=== PATIENT | female | born 1975 | race Caucasian/White ===

== ENCOUNTER 2016-12-06 06:57 | Day surgery (SDC) | payer OTHER ==
[2016-12-06] VITALS (8 sets, daily range): BP systolic 115–138; BP diastolic 68–91; PULSE 74–107; RESP 10–18; O2SAT 95–100
[~2016-12-06] VITALS: Ht 175.3 cm; Wt 87.4 kg
[~2016-12-06 06:57] MED LIST: Ampicillin-Sulbactam Inj 3,000 MG in 0.9% Sodium Chloride 100 ML IV SCH
[2016-12-06] MEDS ORDERED: HYDR12.55 PO (07:32)
[2016-12-06] MEDS ORDERED: Lactated Ringer's 1,000 ML IV ONE ×2 (08:59→12:00)
[2016-12-06] MEDS ORDERED: Iopamidol-300 50 mL Inj IV ONE (09:13)
[2016-12-06] MEDS ORDERED: Bupivacaine-MPF 0.5% 30 mL Inj INFILTRATE ONE (09:13)
[2016-12-06] MEDS ORDERED: DICY20TA10 PO (09:14)
[2016-12-06] MEDS ORDERED: Lactated Ringer's 1,000 ML IV SCH (09:16)
[2016-12-06] MEDS ORDERED: Lactated Ringer's 500 ML IV PRN (09:16)
--- NOTE | 2016-12-06 09:16 | PCM.HPANE ---
Patient Data Date of Service: Dec 06, 2016 (0855) Surgeon Admitting Provider:Brendan Evans MD Attending Provider:Brendan Evans MD Primary Care Physician:Xi Laguna Other Provider: Reason for Visit Chronic Cholecystitis Ht/WT & BMI Height (Feet): 5 Height (Inches): 9.00 Weight (Kilograms): 87.400 Body Mass Index 28.54 Allergies Uncoded Allergies: No Known Allergies (Allergy, Unknown, 09/07/04) Past Anesthesia History Anesthesia History: Denies:: Anesthesia Reactions Diabetes History Hx Diabetes?: No MRSA MRSA: No Medications Reported Medications Dicyclomine 20 Mg [id number] Mg PO TID PRN For GI Cramps Ref 0 12/06/16 Hydrochlorothiazide 12.5 Mg [id number] Mg PO QAM 30 Days Ref 0 12/06/16 History History of ENT Problems?: No HEENT History: Denies:: Cataracts Dysphagia Sinus Problem Denture Type: None Teeth Condition: Within Normal Limits Hx of Heart Problems?: Yes Cardiovascular History: Positive for:: Hypertension Denies:: Cardiac Surgery Chest Pain Congestive Heart Failure Edema Heart Murmur Irregular Heartbeat Pacemaker Thrombophlebitis Hx of Respiratory Problem?: No Respiratory History: Denies:: Asthma COPD Chest Surgery Dyspnea Emphysema Hemoptysis Pneumonia Tuberculosis Hx Neurologic Problems?: Yes Neurological History: Positive for:: Headaches Denies:: Alzheimer's Disease CVA Dementia Dizziness Parkinson's Disease Seizures Hx of GI Problems?: No Hx of Problems?: No Genitourinary History: Denies:: HX of Hemodialysis Kidney Stones Urinary Tract Infection HX of Peritoneal Dialysis: No Female Hx: Denies:: Currently Endometriosis Pelvic Inflammatory Problems with Breasts? Hx Musculoskeletal Problems?: No Musculoskeletal History: Denies:: Back Injury Joint Replacement Musculoskeletal Trauma Hx of Psycho/Social Problems?: No Psycho Social History: Denies:: Anxiety Bipolar Disorder Hx Depression Suicide Attempt Hx Surgeries?: No Other History: Positive for:: Hospitalization (pneumonia as a child) Denies:: Cancer Thyroid Disease History Blood Transfusions: Positive for:: Accept Blood Products? Denies:: Blood Transfuse Reaction Blood Transfusions Hx Diabetes: No Hx Alcohol Use: Yes (rarely)Hx Substance Use: NoHave You Smoked inLast 12 mo: No Stop/Bang Treated for Sleep Apnea?: No Do You Have a CPAP Machine?: No S-Snoring: Do You Snore Loudly: No T-Tired: feel tired, fatigued: No O-Obsered: Observed not breath: No P-Blood Pressure: treated: Yes B- Body Mass Index > 35 kg/m2: No A- Age over 50: No N- Neck Large Circumference: No G- Gender Male: No ANNMARIE Total Score: 1 ANNMARIE Risk Assessment: High Risk, =/>3 Yes Risk Assessment Category Category 1A: Patient has history of documented sleep apnea, and HAS NOT received any narcotic, sedative or anesthesia administration during this stay. Category 1B: Patient has history of documented sleep apnea, and HAS received any narcotic , sedative or anesthesia administration during this stay Category 2: Patient has SUSPECTED Obstructive Sleep Apnea, and HAS received any narcotic , sedative or anesthesia administration during this stay. Category 3: Patient has SUSPECTED Obstructive Sleep Apnea and HAS NOT received narcotic, sedative or anesthesia administration during this stay. Category 4: Outpatient in Procedural Areas with known sleep apnea or who screen positive for High Risk via the STOP/BANG questionnaire. Exam Exam Vital Signs Vital Signs Date Time Temp Pulse Resp B/P Pulse Ox O2 Delivery O2 Flow Rate FiO2 12/06/16 07:18 36.7 78 18 130/75 100 Room Air General Appearance: Alert, Oriented X3 HEENT/AIRWAY: MP 1 Lungs: Clear to Auscultation Heart: Exam Unremarkable Plan Impression Patient chart reviewed, patient interviewed and anesthestic plan with risks, benefits, and alternatives discussed, and informed consent obtained. NPO per Anesth. Guidelines: Yes ASA Physical Status: ASA2 Mod Systemic Disease Anesthetic Plan: GA Bene/Risks/Altern/Consents: Yes HP Complete Prior to Induction: Yes Clem Bennett MD Dec 06, 2016 09:16
[2016-12-06] MEDS ORDERED: Ondansetron 2 mg/mL 2 mL Inj IVPUSH PRN (09:20)
[2016-12-06] MEDS ORDERED: Phenylephrine 10,000 mCg/mL Inj IVPUSH PRN (09:20)
[2016-12-06] MEDS ORDERED: Dexamethasone 4 mg/mL Inj IVPUSH PRN (09:20)
[2016-12-06] MEDS ORDERED: EPHEDrine Sulfate 50 mg/mL Inj IVPUSH PRN (09:20)
[2016-12-06] MEDS ORDERED: MetoCLOpramide 5 mg/mL 2 mL Inj IVPUSH PRN (09:20)
--- NOTE | 2016-12-06 10:31 | DRSVH ---
PROCEDURE: X-RAY OPERATIVE CHOLANGIOGRAM ([id number]) INDICATIONS: CHOLECYSTITIS COMPARISON: None. FINDINGS: Biliary ducts: The surgeon injected contrast into the biliary ducts after cannulation of the cystic duct stump. Visualized intra- and extrahepatic bile ducts are normal in caliber, without strictures. No intraluminal filling defects to suggest retained ductal stones or sludge. No evidence for iatro genic ductal injury. Duodenum: Contrast flows promptly through the sphincter of Oddi into the duodenum, which appears nor mal in caliber. IMPRESSION: Intraoperative cholangiogram without visualized filling defect or ductal dilation. Dictated by: Estela Teran M.D. on 12/06/2016 at 10:30 Approved by: Estela Teran M.D. on 12/06/2016 at 10:30
--- NOTE | 2016-12-06 11:04 | PCM.ANEP1 ---
Post Anesthesia PACU Phase 1 Assessment Vital Signs 36.1, 138/68, 86, 12, 100% Vital Signs Date Time Temp Pulse Resp B/P Pulse Ox O2 Delivery O2 Flow Rate FiO2 12/06/16 07:18 36.7 78 18 130/75 100 Room Air Anesthetic Administered: GA Level of Alertness: Sleepy, easy to arouse BROWN's with Equal Strength: Yes Pain: Yes Nausea or Vomiting: No CV Function & Hydration Stable: Yes Airway Device: none Oxygen Delivery: Simple Mask Lungs: Clear to Auscultation Summary uneventful GETA PACU Phase 2 Assessment Complications: No Follow up Care: No Patient Instructions Provided: N/A Clem Bennett MD Dec 06, 2016 11:04
--- NOTE | 2016-12-06 11:05 | PCM.DISURG ---
Surgical Discharge Instruction Date of Service Dec 06, 2016 Dates of Hospitalization Date of Hospital Admission Dec 06, 2016 at 07:49 Providers Admitting Physician: Brendan Evans MD Primary Care Physician: Xi Laguna Attending Physician: Brendan Evans MD Discharge Diagnosis Discharge Diagnosis Chronic cholecystitis Post Operative diagnosis Chronic cholecystitis Diet Discharge Diet: No restrictions Activity Discharge Activity-General: No lifting >15 pounds for 2 weeks Dressing and Incisional Care Dressing Care: Allow Steri Stripes to fall off, Remove outer dressing after 24 hrs ((bandaids)) Hygiene: May shower after (24 hours.), DO NOT soak incision under water, NO bathtub, hot tub or whirlpool (for 2 weeks) Follow Up Plan Mid-level Provider (F9): Saturnino Nelson PA-C Follow-up appointment: Weeks (2-3) Toy Mccoy MD Dec 06, 2016 11:05
[2016-12-06] MEDS ORDERED: ACET-171 PO (11:07)
[2016-12-06] MEDS ORDERED: POLY17PO6 PO (11:07)
[2016-12-06] MEDS ORDERED: IBUP-1827 PO (11:07)
[2016-12-06] MEDS ORDERED: OXYC-530 PO (11:07)
--- NOTE | 2016-12-06 11:09 | PCM.SURGPO ---
Immediate Operative Note Date of Surgery: Dec 06, 2016 Pre Operative Diagnosis Chronic cholecystitis Post Operative Diagnosis Chronic cholecystitis Procedure Laparoscopic cholecystectomy with intraoperative cholangiogram Surgeon and Kitchenwhere Maker Surgeon: Brendan Evans MD Assistants: Toy Mccoy MD Findings 1. Adhesions between the right liver and anterior abdominal wall 2. No acute inflammation of the gallbladder 3. Plane between gallbladder and cystic plate with some evidence of chronic inflammation 4. Cholangiogram without evidence of biliary dilatation or obstruction, no stones identified. Complications There were no periprocedural complications identified. Surgical Specimen Removed: Yes Specimen sent to Pathology: Yes Anesthetic Administered: GA Grafts, Implants: None Output, Estimated Blood Loss: 5 Blood Admin during surgery: No Toy Mccoy MD Dec 06, 2016 11:09
[2016-12-06] MEDS: fentaNYL-PF 50 mCg/mL 2 mL Inj IVPUSH PRN ×4 (11:20→11:45)
[2016-12-06] MEDS: HYDROmorphone 1 mg/mL Inj IVPUSH PRN ×2 (11:33→11:45)
--- NOTE | 2016-12-06 13:38 | NUR ---
Admit to [facility] Pt. arrived to unit at 0700 this a.m. accompanied by spouse. Pt. checked into room, vitals taken and oriented to room/call light/falls policy. Admit RN present to do admit and med rec. Pt. denies chest pain, SOB, N/V. Bm this morning. c/o mild 1/10 abdominal pain. IV access placed in L AC. Prepped for transfer to OR at 0845. Consent signed. Transferred to OR around 0910.
[2016-12-06] MEDS ORDERED: Phenylephrine/NS 100 mCg/mL 10 mL Syringe IVPUSH ONE (14:34)
[2016-12-06] MEDS ORDERED: Propofol 10,000 mCg/mL 20 mL Inj ONE (14:34)
[2016-12-06] MEDS ORDERED: Ondansetron 2 mg/mL 2 mL Inj ONE (14:34)
[2016-12-06] MEDS ORDERED: Rocuronium 10 mg/mL 5 mL Inj ONE (14:34)
[2016-12-06] MEDS ORDERED: fentaNYL-PF 50 mCg/mL 2 mL Inj ONE (14:34)
[2016-12-06] MEDS ORDERED: Dexamethasone 4 mg/mL Inj ONE (14:34)
--- NOTE | 2016-12-06 14:44 | NUR ---
Discharge Pt. discharged to home at 1445 via w/c. in stable condition. Able to void, ambulate, eat and drink. Denies nausea. Pain rated at 4/10 which is tolerable for her. Umbilical site had minimal amount of sanguinous drainage. Cleaned and reinforced with a piece of tegaderm. instructions, scripts and belongings sent with pt. Pt. educated on s/s infection, discharge instructions and medications. No questions or concerns at this time.
--- NOTE | 2016-12-06 14:57 | OP ---
[address] [address] OPERATIVE REPORT PATIENT: TONI CABALLERO : 1975 MR#: [id number] ADMIT: 12/06/2016 JOB ID: [id number] DATE OF SURGERY: PREOPERATIVE DIAGNOSIS(ES): Cholecystitis. POSTOPERATIVE DIAGNOSIS(ES): Chronic cholecystitis. PROCEDURES PERFORMED: Laparoscopic cholecystectomy with intraoperative cholangiogram. SURGEON: Brendan Evans MD. SUPERVISOR OF INSTRUCTION: Toy Cuadra MD. COMPLICATIONS: None. CONDITION OF THE PATIENT: Stable. INDICATIONS: The patient is a 41-year-old lady I met on December 05, 2016, with a month-long history of right upper quadrant abdominal pain exacerbated by food. She was initially diagnosed with costochondritis and was treated with steroids and muscle relaxants, and then had a blood test showing elevated LFTs and then had an ultrasound and a HIDA scan with HIDA scan showing slow filling of the gallbladder and ultrasound showing gallstones. When I saw her in clinic yesterday, she was very tender and repeat blood work showed bilirubin high at 1.6, and after discussing the risks, benefits, and alternatives, she was brought to the operating room today for laparoscopic cholecystectomy with cholangiogram. PROCEDURE DETAILS: She was placed in a supine position, underwent smooth induction of general anesthesia. Abdomen was prepped and draped in the usual sterile fashion. Surgical time-out was undertaken using safety checklist, and all were in agreement. I began by making a supraumbilical curvilinear incision, entered the abdomen using open Mila technique. Then placed three 5 mm ports, one in the epigastrium and two in the right upper quadrant. Placed the patient in reverse Trendelenburg position. Retracted the gallbladder cephalad and to the right and dissected the triangle of Calot anteriorly and posteriorly and divided the cystic artery between clips and then clipped the cystic duct on the specimen side and obtained a cholangiogram which showed normal anatomy with no filling defects. We then clipped the cystic duct doubly on the patient's side and then divided the cystic duct. Then dissected the gallbladder safely off the liver bed with good hemostasis, placed it in an EndoCatch bag and suctioned out all the fluid from the right upper quadrant. Then, I extracted the gallbladder through the umbilical port site, and after evacuating pneumoperitoneum, closed the umbilical port fascia with [id number] 0-Vicryl suture. The skin was reapproximated with 4-0 Monocryl. Steri-Strips and sterile dressing were applied. Patient was recovered from anesthesia and was taken to the recovery room in stable condition.
--- NOTE | 2016-12-06 15:17 | PCM.DC.SUR ---
Discharge Summary Date of Service: Dec 06, 2016 Date of Hospital Admission: Dec 06, 2016 at 07:49 Date of Operation(s): 12/06/2016 Date of Discharge: 12/06/2016 Diagnosis at Time of Discharge Chronic cholecystitis Problems: Operation Laparoscopic cholecystectomy with intraoperative cholangiogram Brief History and Physical: The patient is a 41-year-old female with 1 month history of right upper quadrant abdominal pain exacerbated by food. She was initially diagnosed with costochondritis and was treated with steroids and muscle relaxants, and then had a blood test showing elevated LFTs and then had an ultrasound and a HIDA scan with HIDA scan showing slow filling of the gallbladder and ultrasound showing gallstones. She was evaluated in General Surgery clinic yesterday, she was very tender and repeat blood work showed bilirubin high at 1.6, and after discussing the risks, benefits, and alternatives, she was brought to the operating room today for laparoscopic cholecystectomy with cholangiogram. Hospital Course: Terrie underwent the procedure above without complications. She tolerated the procedure well, resumed a regular diet, ambulated, voided and demonstrated good pain control with oral medications and met goals for safe discharge home after surgery. Disposition: Discharge home in good condition. Follow-up Plan: Follow up with PA in General Surgery clinic in 2-3 weeks. Acetaminophen (Acetaminophen) 500 Mg Tablet 500 MG PO Q6H PRN PRN For Pain Dicyclomine (Dicyclomine) 20 Mg Tablet 20 MG PO TID PRN PRN For GI Cramps ( Reported) Hydrochlorothiazide (Hydrochlorothiazide) 12.5 Mg Tablet 12.5 MG PO QAM ( Reported) Ibuprofen (Ibuprofen) 600 Mg Tablet 600 MG PO QID PRN PRN For Pain Polyethylene Glycol 3350 (Miralax) 17 Gm Powd.pack 17 GM PO DAILY PRN PRN For Constipation oxyCODONE (oxyCODONE) 5 Mg Tablet 5 MG PO Q4H PRN PRN For Pain Toy Mccoy MD Dec 06, 2016 15:17
--- NOTE | 2016-12-10 14:43 | PATH ---
SURGICAL PATHOLOGY Attending Physician:Brendan Evans MD CASE STATUS: Signed Out PATIENT NAME: TONI CABALLERO PID: [id number] : 1975 DATE COLLECTED:12/06/2016 00:00 SPECIMEN: Gallbladder CLINICAL HISTORY: ACUTE CHOLECYSTITIS 1). GALLBLADDER FINAL DIAGNOSIS: Gallbladder, Laparoscopic Appendectomy: Acute and chronic cholecystitis, cholesterolosis and cholelithiasis. ICD10: K81.0 GROSS DESCRIPTION: Received in formalin, labeled with the patient's name and "gallbladder" is an intact gallbladder measuring 7.0 x 3.0 x 2.5 cm. The serosal surface is flor and smooth. The specimen is opened and contains a large amount of green viscous bile. There are three green smooth gallstones ranging in size from 0.7 x 0.7 x 0.5 cm to 1.0 x 1.0 x 0.8 cm. The wall is thin and palpable and measures up to 0.4 cm in thickness with a velvety green inner lining. No mass or lesions are identified. Information Systems Security Specialist sections are taken from the cystic duct as well as the proximal, middle and distal body of the gallbladder, and are submitted in one cassette. [id number]) ICD-9 CODES: CPT CODES: 1: 16890 Electronically Signed Out Agnes Harrison MD [facility]ly [facility] Pathology [facility] [address], [place] [address] Technical component performed at [facility], [address] [place] [address] [address], [place], [address]
== END 2016-12-06 14:35 | disposition home or self-care (01) ==
LOC: ORA 06:57 → UNDOADMIN 07:49 → OSC 07:49 → ORA 14:35 → UNDODISIN 14:35
PROVIDERS: ATTEND Student in an Organized Health Care Education/Training Program
PROC: BF001ZZ Plain Radiography of Bile Ducts using Low Osmolar Contrast (ICD-10-PCS; 2016-12-06)
PROC: 0FT44ZZ Resection of Gallbladder, Percutaneous Endoscopic Approach (ICD-10-PCS; principal; 2016-12-06 09:00)
DX: K81.1 Chronic cholecystitis (principal)
CPT/HCPCS: 47563; 74300; J0295; J0690; J1100; J1170; J2250; J2370; J2405; J2704; J3010; J7120; Q9967